=== PATIENT | male | born 1985 | race African-American/Black ===

== ENCOUNTER 2017-01-09 08:33 | Emergency (ER) | payer OTHER ==
[~2017-01-09] VITALS: Ht 177.8 cm; Wt 95.3 kg
[~2017-01-09 08:33] MED LIST: PRED20TA PO; PROAIR HFA8.5 GM INH
[2017-01-09] MEDS ORDERED: ONDANSETRON ODT 4 MG TAB.RAPDIS PO ONE (09:00)
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
[2017-01-09 09:30] LABS: OBC FLU VALID
[2017-01-09] MEDS ORDERED: PRED50TA PO (09:38)
[2017-01-09] MEDS ORDERED: PROAIR HFA8.5 GM INH (09:38)
[2017-01-09] MEDS ORDERED: D-ME118S2 PO (09:38)
[2017-01-09 09:43] VITALS: BP 122/71
== END 2017-01-09 09:54 | disposition home or self-care (01) ==
LOC: ER 08:33
DX: J40 Bronchitis, not specified as acute or chronic (principal); F17.210 Nicotine dependence, cigarettes, uncomplicated
CPT/HCPCS: 71020; 87804; 99285; Q0162